=== PATIENT | female | born 2005 | race Two or more races ===

== ENCOUNTER 2025-04-21 04:02 | Emergency (ER) | payer OTHER ==
[~2025-04-21] VITALS: Ht 165.1 cm; Wt 100.9 kg
[2025-04-21 04:16] VITALS: BP 88/55; PULSE 68; RESP 18; TEMP 99.2; O2SAT 99
[2025-04-21 04:25] LABS: Urine Bacteria None Seen /hpf (None Seen)
--- NOTE | 2025-04-21 04:26 | ED.PDOC ---
History of Present Illness HPI Comments 20 y/o obese F, with a history of prediabetes, presents with c/o constant epigastric and occasional RUQ abdominal pain, with associated nausea, vomiting, and diarrhea. Patient reports reports onset of symptoms at around 2200, last night. She states on eating "Hot Cheetos" chips prior. Pain is cramping in clair lity. Symptoms had no relief or improvement with vomiting, passing bowel movements, or taking constipated medications she was, previously, prescribed. No recent prior ailments, sick contact, travel, injuries, or GI history endorsed. Patient denies having any bloody or bilious vomitus, diarrhea, constipation, urinary symptoms, fever, chills, or further associated symptoms. Chief Complaint: Abdominal Pain Time Seen by MD: 04:15 Reviewed Notes: Nurses Notes, Medications, Allergies Allergies: Coded Allergies: NO KNOWN ALLERGIES (Unverified , 04/21/25) Information Source: Patient Mode of Arrival: Ambulatory Severity: Moderate Timing: Hours Duration: Since onset Prehospital treatment: None Past Medical History Past Medical History (Other): prediabetes Surgical History: Denies all surgeries SOLE SEAMER History: Denies all SOLE SEAMER Hx LMP 03/31/25 Family History Family History: Unknown Social History Smoker: Non-Smoker Alcohol: Denies ETOH Use Drugs: Denies Drug Use Lives In: Home All Other Systems: Reviewed and Negative (Comprehensive review of systems are negative unless otherwise stated in HPI) Physical Exam General Appearance: Mild Distress, Obese HEENT: Normal ENT Inspection, Pharynx Normal, TMs Normal Neck: Full Range of Motion, Non-Tender, Normal, Normal Inspection Respiratory: Chest Non-Tender, Lungs Clear, No Accessory Muscle Use, No Respiratory Distress, Normal Breath Sounds Cardiovascular: No Edema, No JVD, No Murmur, No Gallop, Normal Peripheral Pulses, Regular Rate/Rhythm Breast Exam: Deferred Gastrointestinal: No Organomegaly, Non Tender, No Pulsatile Mass, Normal Bowel Sounds, Soft Genitalia: Deferred Pelvic: Deferred Rectal: Deferred Extremities: No calf tenderness, Normal capillary refill, Normal inspection, Normal range of motion, Non-tender, No pedal edema Musculoskeletal : Apperance: Normal Neurologic: Alert, pet adoption counselor II-XII nml as Tested, No Motor Deficits, Normal Affect, Normal Mood, No Sensory Deficits Cerebellar Function: Normal Reflexes: Normal Skin: Dry, Normal Color, Warm Lymphatic: No Adenopathy Was a procedure done? Was a procedure done?: No Differential Dx Considerations may include: Gastritis, gastroenteritis, GERD, PUD, cholelithiasis, cholecystitis, , spoiled food, viral syndrome, among others X-Ray, Labs, Meds, VS Vital Signs Date Time Temp Pulse Resp B/P (MAP) Pulse Ox O2 Delivery O2 Flow Rate FiO2 04/21/25 04:16 99.2 68 18 88/55 (66) 99 99.2 Lab Test 04/21/25 04:34 04/21/25 04:20 Range/Units White Blood Count 9.6 4.4-10.8 10^3/uL Red Blood Count 5.23 H 4.0-5.20 10^6/uL Hemoglobin 13.8 12.2-16.2 g/dL Hematocrit 42.1 36.0-46.0 % Mean Corpuscular Volume 80.5 80.0-100.0 fL Mean Corpuscular Hemoglobin 26.5 L 28.0-32.0 pg Mean Corpuscular Hemoglobin Concent 32.9 32.0-36.0 g/dL Red Cell Distribution Width 14.1 11.8-14.3 % Platelet Count 278 140-450 10^3/uL Mean Platelet Volume 8.4 6.9-10.8 fL Neutrophils (%) (Auto) 67.9 37.0-80.0 % Lymphocytes (%) (Auto) 24.5 10.0-50.0 % Monocytes (%) (Auto) 5.4 0.0-12.0 % Eosinophils (%) (Auto) 1.7 0.0-7.0 % Basophils (%) (Auto) 0.5 0.0-2.0 % Neutrophils # (Auto) 6.5 1.6-8.6 10 ^3/uL Lymphocytes # (Auto) 2.4 0.4-5.4 10 ^3/uL Monocytes # (Auto) 0.5 0-1.3 10 ^3/uL Eosinophils # (Auto) 0.2 0-0.8 10 ^3/uL Basophils # (Auto) 0 0-0.2 10 ^3/uL Nucleated Red Blood Cells 0.1 % Sodium Level Pending Potassium Level Pending Chloride Level Pending Carbon Dioxide Level Pending Anion Gap Pending Blood Urea Nitrogen Pending Creatinine Pending Glomerular Filtration Rate Calc Pending BUN/Creatinine Ratio Pending Serum Glucose Pending Calcium Level Pending Total Bilirubin Pending Aspartate Amino Transferase (AST) Pending Alanine Aminotransferase (ALT) Pending Alkaline Phosphatase Pending Total Protein Pending Albumin Pending Lipase Pending Urine Color Light-yellow Yellow Urine Clarity Clear Clear Urine pH 6.0 5.0-9.0 Urine Specific [place] 1.029 1.001-1.035 Urine Protein Negative Negative Urine Ketones Negative Negative Urine Blood Negative Negative /uL Urine Nitrite Negative Negative Urine Bilirubin Negative Negative Urine Urobilinogen Normal Negative mg/dL Urine Leukocyte Esterase Negative Negative /uL Urine RBC <1 0 - 4 /hpf Urine Microscopic WBC < 1 0-5 /HPF Urine Squamous Epithelial Cells Few <5 /hpf Urine Bacteria None seen None Seen /hpf Urine Glucose Normal Normal mg/dL Urine Test Negative Negative Current Medications Medications (Trade) Dose Ordered Sig/Kris Route Start Time Stop Time Status Last Admin Metoclopramide HCl (Reglan Injection) 10 mg ONCE ONCE IV 04/21/25 04:15 04/21/25 04:20 DC 04/21/25 04:37 Sodium Chloride 1,000 ml @ 1,000 mls/hr Q1H ONCE IVB 04/21/25 04:15 04/21/25 05:14 04/21/25 04:37 Loperamide HCl (Imodium Capsule) 4 mg ONCE ONCE PO 04/21/25 04:15 04/21/25 04:20 DC 04/21/25 04:44 Time of 1ST Reevaluation: 04:45 Reevaluation 1ST: Unchanged Patient Education/Counseling: Diagnosis, Treatment, Need For Follow Up Family Education/Counseling: No Family Present SEPSIS Sepsis Screen Orders/Vitals/Labs Physician Orders Comprehensive Metabolic Panel (04/21/25 04:15) Lipase (04/21/25 04:15) Sodium Chloride 0.9% (04/21/25 04:15) Vital Signs Date Time Temp Pulse Resp B/P (MAP) Pulse Ox O2 Delivery O2 Flow Rate FiO2 04/21/25 04:16 99.2 68 18 88/55 (66) 99 99.2 Laboratory Tests Test 04/21/25 04:34 White Blood Count 9.6 10^3/uL (4.4-10.8) Medications Medications Dose Ordered Sig/Kris Route Start Time Stop Time Status Last Admin Dose Admin Loperamide HCl 4 mg ONCE ONCE PO 04/21/25 04:15 04/21/25 04:20 DC 04/21/25 04:44 Metoclopramide HCl 10 mg ONCE ONCE IV 04/21/25 04:15 04/21/25 04:20 DC 04/21/25 04:37 Sodium Chloride 1,000 ml @ 1,000 mls/hr Q1H ONCE IVB 04/21/25 04:15 04/21/25 05:14 04/21/25 04:37 Departure 1 Departure Time of Disposition: 05:07 Impression: Primary Impression: Upper abdominal pain Disposition: 07 LEFT AGAINST MEDICAL ADVICE Condition: Stable Discharged With: Self Comments On reevaluation the patient is declining admission and wants to go home. I have voiced my concerns for the patient's health given that a full evaluation and treatment had not occurred. I have discussed the need for continued evaluation to determine if their symptoms are caused by a condition that present risk of or morbidity. Risks including but not limited to , permanent disability, prolonged hospitalization, prolonged illness, were discussed. I discussed the specific benefits of additional treatment, as well as tried offering alternative options in hopes that the patient might be amenable to partial evaluation and treatment which would be medically beneficial to the patient. However, the patient declined my options and insisted on leaving. Patient has a clear sensorium and GCS 15 and expresses understanding of the risks with leaving. Because I have been unable to convince the patient to stay, I answered all of their questions about their condition and asked them to return to the ED as soon as possible to complete their evaluation, especially if their symptoms worsen or do not improve. I emphasized that leaving against medical advice does not preclude returning here for further evaluation. I asked the patient to return if they change their mind about the further evaluation and treatment. I strongly encouraged the patient to return to this Emergency Department or any Emergency Department at any time, particularly with worsening symptoms. Critical Care Note Critical Care Time?: No Stability Stability form required: No Heart Score Heart Score: Heart Score Response (Comments) Value History N/A 0 EKG N/A 0 Age N/A 0 Risk Factors N/A 0 Troponin N/A 0 Total 0 I personally scribed for SINGH PEREZ MD ([email or web address]) on 04/21/25 at 04:26. Electronically submitted by Aj Heredia ([email or web address]). SINGH PEREZ MD Apr 21, 2025 04:26
[2025-04-21 04:30] LABS: Urine Blood Negative /uL (Negative); Urine Clarity Clear (Clear); Urine Color Light-Yellow (Yellow); Urine Protein, UAD Negative (Negative); Urine Specific Gravity 1.029 (1.001-1.035); Urine Squamous Epithelial Cell FEW /hpf (<5); Urine Urobilinogen Normal (Negative); Urine WBC < 1 /HPF (0-5)
[2025-04-21] MEDS: SODIUM CHLORIDE 0.9% 1,000 ML IVB ONE (04:37)
[2025-04-21] MEDS: METOCLOPRAMIDE HCL 5MG/ml INJ 2ml VIAL IV ONE (04:37)
[2025-04-21] MEDS: LOPERAMIDE HCL 2 MG CAP/TAB PO ONE (04:44)
[2025-04-21 04:52] LABS: Hemoglobin 13.8 g/dL (12.2-16.2); Monocytes # (auto) 0.5 10 ^3/uL (0-1.3); Nucleated Red Blood Cells % 0.1 %; Red Cell Distribution Width 14.1 % (11.8-14.3)
[2025-04-21 04:54] LABS: Basophils # (auto) 0 10 ^3/uL (0-0.2); Basophils % (auto) 0.5 % (0.0-2.0); Eosinophils # (auto) 0.2 10 ^3/uL (0-0.8); Eosinophils % (auto) 1.7 % (0.0-7.0); Hematocrit 42.1 % (36.0-46.0); Lymphocytes # (auto) 2.4 10 ^3/uL (0.4-5.4); Lymphocytes % (auto) 24.5 % (10.0-50.0); Mean Corpuscular Hemoglobin 26.5 pg (28.0-32.0); Mean Corpuscular Hgb Conc. 32.9 g/dL (32.0-36.0); Mean Corpuscular Volume 80.5 fL (80.0-100.0); Monocytes % (auto) 5.4 % (0.0-12.0); Neutrophils # (auto) 6.5 10 ^3/uL (1.6-8.6); Neutrophils % (auto) 67.9 % (37.0-80.0); Platelet Count (auto) 278 10^3/uL (140-450); Red Blood Cells 5.23 10^6/uL (4.0-5.20); White Blood Cell 9.6 10^3/uL (4.4-10.8)
[2025-04-21 05:07] LABS: Alanine Aminotransferase 14 U/L (7-40); Albumin 4.5 g/dL (3.2-4.8); Alkaline Phosphatase 108 U/L (46-116); Anion Gap 8 (5-15); Aspartate Aminotransferase 15 U/L (<34); BUN/Creatinine Ratio 15.4 (10.0-20.0); Blood Urea Nitrogen 10 mg/dL (9-23); Calcium 9.3 mg/dL (8.7-10.4); Carbon Dioxide 27 mmol/L (20-31); Chloride 104 mmol/L (98-107); Lipase 39 U/L (12-53); Sodium 139 mmol/L (136-145); Total Protein 7.1 g/dL (5.7-8.2)
[2025-04-21 05:08] LABS: Bilirubin, Total 0.3 mg/dL (0.2-1.0); Glucose 110 mg/dL (74-106)
== END 2025-04-21 05:09 | disposition left against medical advice (07) ==
LOC: ER 04:02
DX: R10.11 Right upper quadrant pain (principal); R19.7 Diarrhea, unspecified; R11.2 Nausea with vomiting, unspecified
CPT/HCPCS: 36415; 80053; 81001; 81025; 83690; 85025; 96361; 96374; 99283; J2765; J7030